=== PATIENT | female | born 1945 | race Caucasian/White ===

== ENCOUNTER → 2018-07-05 | Day surgery (SDC) | payer MEDICARE, BC ==
[~2018-07-05] MED LIST: Lactated Ringers 1,000 ML IV SCH; Propofol 200 MG/20 ML SDV IV ONE
[2018-07-05 10:55] VITALS: BP 128/57
--- NOTE | 2018-07-05 12:34 | OR ---
DATE OF OPERATION: 07/05/2018 PREOPERATIVE DIAGNOSIS: FOLLOW UP POLYPS. POSTOPERATIVE DIAGNOSIS: FOLLOW UP POLYPS. SURGEON: Kulwant Person MD PROCEDURE: FULL-LENGTH COLONOSCOPY WITH BIOPSIES X6 AND POLYP REMOVAL X5. ANESTHESIA: CONSTRUCTION OR [employer]. COMPLICATIONS: None. SPECIMEN: 1. Five separate small tubular adenomas. 2. Biopsy of two separate villous lesions, right colon x6. FINDINGS: 1. Full-length colonoscopy. 2. Tubular adenoma removal x5. 3. Two large villous lesion ascending colon, and hepatic flexure, both requiring surgical removal. INDICATIONS: The patient was sent by Myrna Patterson PA-C for followup on prior polyp removals. The patient has apparent family history of colon CA as well. DESCRIPTION OF PROCEDURE: The patient was prepped and draped, placed in the left lateral decubitus position. A lubricated Olympus colonoscope was inserted and with ease advanced to the cecum. We were able to directly visualize the ileocecal valve and appendiceal orifice. The bowel prep was excellent. Upon withdrawal of scope right in the backside of the ileocecal valve, the patient has small flat sessile polyp removed in its entirety with 2 cold forceps biopsies. In the mid ascending colon, the patient has a large villous lesion, looks polypoid, but occupies too much lining to safely remove. We did three biopsies of this area and couple smaller pieces of the lesion came off. We were able to suction into polyp trap #1. Two smaller in the mid to distal ascending colon, the patient had 2 small tubular adenomas, as well. One removed with snare, second removed with 2 cold forceps biopsies. At the hepatic flexure, the patient had another flat villous lesion, elongated and polypoid in nature, felt too large to remove safely in [place]. Three biopsies of that were taken as well. The transverse colon and descending colon appeared benign. The patient had 2 more small tubular adenomas in the distal sigmoid and rectosigmoid area, each easily removed with forceps. The patient does have mild to moderate diverticular disease in the sigmoid colon. The rectal vault appeared benign. Retroflexion of scope in the rectum showed no anal lesions. Air was suctioned, and scope removed without complication. NADIR/NEO /[id number]
== END ==
LOC: CC.SDS 07:27 → MERGE 08:15
PROVIDERS: ATTEND Family Medicine
DX: Z12.11 Encounter for screening for malignant neoplasm of colon (principal); D12.0 Benign neoplasm of cecum; D12.2 Benign neoplasm of ascending colon; D12.3 Benign neoplasm of transverse colon; D12.5 Benign neoplasm of sigmoid colon; K63.5 Polyp of colon; K57.30 Diverticulosis of large intestine without perforation or abscess without bleeding; I10 Essential (primary) hypertension; E87.6 Hypokalemia; M85.80 Other specified disorders of bone density and structure, unspecified site; E11.9 Type 2 diabetes mellitus without complications; Z88.0 Allergy status to penicillin; Z88.2 Allergy status to sulfonamides; Z79.82 Long term (current) use of aspirin; Z79.84 Long term (current) use of oral hypoglycemic drugs; Z79.899 Other long term (current) drug therapy; Z86.010 Personal history of colon polyps; Z80.0 Family history of malignant neoplasm of digestive organs
CPT/HCPCS: 82962; 88305; J2704; J7120